=== PATIENT | male | born 1960 | race Caucasian/White ===

== ENCOUNTER 2018-11-20 20:26 | Emergency (ER) | payer MEDICAID ==
[~2018-11-20] VITALS: Ht 175.3 cm; Wt 70.0 kg
[~2018-11-20 20:26] MED LIST: ACET-1757 PO; ARIP15TA3 PO; ARIP30TA4 PO; ATAZ300C PO; ATOR10TA9 PO; BACL-19 PO; CARB1TAB22 PO; CARB1TAB43 PO; DIVA250T4 PO; DOCU100T3 PO; EMTR1TAB8 PO; EMTRICITABINE PO; FLUO10CA13 PO; FLUO20CA19 PO; HYDR25TA11 PO; LORA-446 PO; ONDA4TAB7 PO; OXYC5TAB3 PO; PRAM0.12 PO; RITO100C PO; SERT50TA PO; TEMA15CA PO; TENOFOVIR DISOPROXIL FUMARATE PO
--- NOTE | 2018-11-20 20:35 | NUR ---
TASK RN: PT PLACED IN HOSPITAL GOWN. PT BELONGINGS BAGGED, TAGGED, AND PLACE DIN CLOTHING CLOSET. PT AWARE A URINE SAMPLE IS NEEDED. GARAGE DOORS DOWN X2. PT RESTING IN BED.
--- NOTE | 2018-11-20 20:46 | NUR ---
report received from BRIDGETTE Pineda.
--- NOTE | 2018-11-20 21:06 | NUR ---
PT PRESENTS TO ED WITH C/O SUICIDALITY, PLAN TO JUMP IN FRONT OF TRAFFIC. PT STATES THESE FEELINGS WERE PROMPTED BY ARGUMENT WITH ROOMMATE. PT ALSO NOTES HEADACHE AND NAUSEA, ONSET TONIGHT. NEURO INTACT. PT HAS NO OTHER COMPLAINTS AT THIS TIME. PT USES WALKER TO MOBILIZE AT BASELINE, THIS REMAINS AT BEDSIDE. ALL OTHER BELONGINGS BAGGED AND PLACED IN LOCKED CABINET. ROOM SECURE. Addendum: 11/20/18 at 2108 by MORALES PT PRESENTS TO ED WITH C/O SUICIDALITY, PLAN TO JUMP IN FRONT OF TRAFFIC. PT STATES THESE FEELINGS WERE PROMPTED BY ARGUMENT WITH ROOMMATE. PT ALSO NOTES HEADACHE AND NAUSEA, ONSET TONIGHT. TEO FRANCIS NOTIFIED. NEURO INTACT. PT HAS NO OTHER COMPLAINTS AT THIS TIME. PT USES WALKER TO MOBILIZE AT BASELINE, THIS REMAINS AT BEDSIDE. ALL OTHER BELONGINGS BAGGED AND PLACED IN LOCKED CABINET. ROOM SECURE.
[2018-11-20 21:38] LABS: BASOPHILS # (AUTO) 0.03 x10^3/uL (0-0.1); BASOPHILS % (AUTO) 1 % (0-1); EOSINOPHILS # (AUTO) 0.06 x10^3/uL (0-0.4); EOSINOPHILS % (AUTO) 1 % (1-7); LYMPHOCYTES # (AUTO) 1.53 x10^3/uL (1-3.4); LYMPHOCYTES % (AUTO) 31 % (22-44); MD NO; MEAN CORPUSCULAR VOLUME 97.1 fL (81-97); MEAN PLATELET VOLUME 8.3 fL (7.4-10.4); MONOCYTES # (AUTO) 0.42 x10^3/uL (0.2-0.8); MONOCYTES % (AUTO) 9 % (2-9); NEUTROPHILS # (AUTO) 2.84 x10^3/uL (1.8-6.8); NEUTROPHILS % (AUTO) 58 % (42-75); PLATELET COUNT 217 x10^3/uL (130-400); RED BLOOD COUNT 4.25 x10^6/uL (4.38-5.82); RED CELL DISTRIBUTION WIDTH 16.4 % (9.4-14.8)
--- NOTE | 2018-11-20 21:42 | NUR ---
urine collected and sent to lab. vs reassessed. pt a&o, resps even and unlabored. awaiting labs and dispo at this time.
[2018-11-20 21:49] LABS: ALBUMIN 3.3 g/dL (3.4-5.0); ANION GAP 10 mmol/L (5-15); CALCIUM 8.3 mg/dL (8.5-10.1); CHLORIDE 108 mmol/L (98-107)
[2018-11-20 21:52] LABS: ACETAMINOPHEN < 2 mcg/mL (10-30); ALANINE AMINOTRANSFERASE 12 U/L (12-78); ALKALINE PHOSPHATASE 112 U/L (45-117); BILIRUBIN,TOTAL 0.4 mg/dL (0.2-1.0); CREATININE 1.01 mg/dL (0.7-1.3); SALICYLATE LEVEL < 1.7 mg/dL (2.8-20.0); TOTAL PROTEIN 6.9 g/dL (6.4-8.2)
--- NOTE | 2018-11-20 21:52 | NUR ---
vs reassessed, HR 45-50, ausculatated regular. ERP Grausz notified. no orders received.
--- NOTE | 2018-11-20 21:52 | NUR ---
PHAN RN: Telepsych consult initiated as requested by Dr. Hoff
[2018-11-20 21:57] LABS: AMPHETAMINE SCREEN, URINE Negative (Negative); BARBITURATE SCREEN, URINE Negative (Negative); BENZODIAZEPINE SCREEN, URINE Negative (Negative); CANNABINOID SCREEN, URINE Negative (Negative); COCAINE SCREEN, URINE Negative (Negative); METHADONE SCREEN, URINE Negative (Negative); OPIATE SCREEN, URINE Negative (Negative)
--- NOTE | 2018-11-20 21:58 | NUR ---
report given to BRIDGETTE Pineda.
--- NOTE | 2018-11-20 22:00 | NUR ---
ASSUMED CARE OF PATIENT. SITTER AT DOOR. WILL CONTINUE TO MONITOR.
--- NOTE | 2018-11-20 22:52 | NUR ---
PT REPORTS HE HAD "ONE BEER." ETOH LEVEL .226 TELEPSYCH WHEN PATIENT IS SOBER. PT GIVEN A PILLOW FOR COMFORT. PT RESTING IN ROOM. SITTER AT DOOR. WILL CONTINUE TO MONITOR.
--- NOTE | 2018-11-20 23:28 | NUR ---
pt resting in room. regular resp. no acute distress noted. vs stable. sitter at door. will continue to monitor.
--- NOTE | 2018-11-21 00:01 | NUR ---
PT REPORTS HE IS NO LONGER FEELING SI. PT RESTING IN ROOM. REGULAR RESP. VS STABLE. SITTER AT DOOR. WILL CONTINUE TO MONITOR.
--- NOTE | 2018-11-21 00:53 | NUR ---
PT RESTING IN ROOM. NO ACUTE DISTRESS NOTED. VS STABLE. SITTER AT DOOR. WILL CONTINUE TO MONITOR.
--- NOTE | 2018-11-21 02:00 | NUR ---
PT RESTING IN ROOM. NO ACUTE DISTRESS NOTED. SITTER AT DOOR. VS STABLE WILL CONTINUE TO MONITOR.
--- NOTE | 2018-11-21 03:32 | NUR ---
PT DENIES SI. VS STABLE. SITTER AT DOOR. WILL CONTINUE TO MONITOR.
--- NOTE | 2018-11-21 04:29 | NUR ---
PATIENT RESTING IN ROOM. NO ACUTE DISTRESS NOTED. VS STABLE. SITTER AT DOOR. WILL CONTINUE TO MONITOR.
--- NOTE | 2018-11-21 05:33 | NUR ---
PT RESTING IN ROOM. REGUALR RESP. NO ACUTE DISTRESS NOTED. SITTER AT DOOR. WILL CONTINUE TO MONITOR.
[2018-11-21 05:52] VITALS: BP 111/77
--- NOTE | 2018-11-21 05:53 | NUR ---
PT ALERT AND A&O X4. PT DENIES SI. SITTER AT DOOR. WILL CONTINUE TO MONITOR.
--- NOTE | 2018-11-21 06:40 | NUR ---
REPORT CALLED INTO [facility]
--- NOTE | 2018-11-21 06:58 | NUR ---
BEDSIDE REPORT FROM BRIDGETTE LINDA, PT CARE ASSUMED AT THIS TIME. PT IN BED IN SUICIDE SECURED ROOM, NAD, NO NEEDS AT THIS TIME, SITTER AT DOORWAY, ALL BELONGINGS SECURED BY PRIOR SHIFT, WHEELCHAIR STILL IN PT ROOM. PT HAS BEEN CLEARED BY SOC, AWAITING ERMD DISPO. BREAKFAST ORDERED, WCTM.
--- NOTE | 2018-11-21 06:58 | NUR ---
BEDSIDE REPORT GIVEN TO BRIDGETTE HEAD
--- NOTE | 2018-11-21 08:16 | NUR ---
PT GIVEN TAXY VOUCHER, [facility]EVEN CALLED & WHEELCHAIR CAB REQUESTED. PT DRESSING HIMSELF, GIVEN CLEAN SOCKS & BREAKFAST TRAY TO GO.
== END 2018-11-21 08:25 | disposition home or self-care (01) ==
LOC: ED 20:39
DX: R45.851 Suicidal ideations (principal); F10.120 Alcohol abuse with intoxication, uncomplicated; I10 Essential (primary) hypertension; G20 Parkinson's disease; Z86.19 Personal history of other infectious and parasitic diseases
CPT/HCPCS: 36415; 80053; 80307; 80329; 85025; 99284; G0480

== ENCOUNTER 2020-09-02 11:21 | Emergency (ER) | payer MEDICAID ==
[~2020-09-02] VITALS: Ht 175.3 cm; Wt 73.0 kg
[~2020-09-02 11:21] MED LIST changes: -ACET-1757 PO; +ACET-2065 PO; +HYDR-826 PO; -HYDR25TA11 PO
[2020-09-02 11:29] VITALS: BP 134/65
[2020-09-02] MEDS ORDERED: CALC200T20 PO (11:33)
[2020-09-02] MEDS ORDERED: AMAN100T PEG (11:33)
--- NOTE | 2020-09-02 11:38 | NUR ---
PT HAS BEEN OUT OF [facility] FOR A WEEK, AMANTIDINE AND CARV/LEVADOPA. PT IS TREMULOUS. DENIES CP OR RESP DISTRESS.
[2020-09-02] MEDS ORDERED: CARBIDOPA/LEVODOPA 25 MG/250 MG TABLET PO ONE (12:00)
[2020-09-02] MEDS ORDERED: AMANTADINE 100 MG CAPSULE PO ONE (12:00)
--- NOTE | 2020-09-02 12:26 | NUR ---
MEDICATED PER ORDERS
--- NOTE | 2020-09-02 13:04 | NUR ---
THROUGHPUT RN: PRIMARY BRIDGETTE SRINIVASAN REQUESTING [facility] TRANSPORT HOME FOR PT, ZARINA ANGELES VERIFIED PT'S ADDRESS. [facility] CALLED, ETA 1400 FOR TRANSPORT. ERP AND PRIMARY BRIDGETTE SRINIVASAN AWARE. Addendum: 09/02/20 at 1309 by JARET SPOKE WITH JEF AT [facility], ETA 1400
--- NOTE | 2020-09-02 13:18 | NUR ---
GAVE PT WATER.
--- NOTE | 2020-09-02 13:58 | NUR ---
Patient/Caregiver given discharge instructions and they have confirmed that they understand the instructions. Patient dc with [id number]
== END 2020-09-02 14:00 | disposition home or self-care (01) ==
LOC: ED 11:33
DX: G20 Parkinson's disease (principal); Z76.0 Encounter for issue of repeat prescription; R11.2 Nausea with vomiting, unspecified; I10 Essential (primary) hypertension; Z87.891 Personal history of nicotine dependence
CPT/HCPCS: 99283

== ENCOUNTER 2020-10-12 11:36 | Emergency (ER) | payer MEDICAID ==
[~2020-10-12] VITALS: Ht 175.3 cm; Wt 76.5 kg
[~2020-10-12 11:36] MED LIST changes: +AMAN100T PEG; +CALC200T20 PO; -OXYC5TAB3 PO; +OXYC5TAB98 PO
--- NOTE | 2020-10-12 13:00 | NUR ---
Mary Lou ho in [facility] - 10/12/20 at 1307 by DRE CADDY MASTER; PT TO ROOM FROM RUSSELL GODINEZ
--- NOTE | 2020-10-12 13:00 | NUR ---
NURSE TRANSPLANT: PT TO ROOM FROM LOBBY VIA W/C.
[2020-10-12 13:21] VITALS: BP 129/78
--- NOTE | 2020-10-12 13:43 | NUR ---
meds requested from pharmacy
[2020-10-12] MEDS ORDERED: CARBIDOPA/LEVODOPA 25 MG/250 MG TABLET PO ONE (14:00)
[2020-10-12] MEDS ORDERED: AMANTADINE 100 MG CAPSULE PO ONE (14:00)
--- NOTE | 2020-10-12 14:01 | NUR ---
MEDS ADMIN PER OCT.
== END 2020-10-12 14:05 | disposition home or self-care (01) ==
LOC: ED 13:59
DX: I10 Essential (primary) hypertension (principal); Z76.0 Encounter for issue of repeat prescription; G20 Parkinson's disease
CPT/HCPCS: 99283